=== PATIENT | male | born 1985 | race Caucasian/White ===

== ENCOUNTER 2016-08-04 14:50 | Emergency (ER) | payer OTHER ==
[~2016-08-04] VITALS: Ht 188 cm; Wt 104.0 kg
[2016-08-04 14:51] VITALS: BP 163/102
== END 2016-08-04 16:20 | disposition home or self-care (01) ==
LOC: ED 16:10
DX: M25.561 Pain in right knee (principal); I10 Essential (primary) hypertension; K21.9 Gastro-esophageal reflux disease without esophagitis; F17.210 Nicotine dependence, cigarettes, uncomplicated; X58.XXXA Exposure to other specified factors, initial encounter; Y93.89 Activity, other specified; Y99.8 Other external cause status; Y92.79 Other farm location as the place of occurrence of the external cause
CPT/HCPCS: 29505